=== PATIENT | male | born 1955 | race Caucasian/White ===

== ENCOUNTER 2025-01-27 15:38 | Emergency (ER) | payer MEDICARE, SELFPAY ==
[2025-01-27 15:46] VITALS: BP 149/102
[2025-01-27 16:05] LABS: Urine Character Clear (Clear)
[2025-01-27 16:10] LABS: Hematocrit 42.3 % (39.0-52.0); Hemoglobin 14.4 g/dL (13.0-18.0); Mean Corp Hgb Conc. 34.0 g/dL (33.0-37.0); Mean Corpuscular Volume 84.9 fL (80.0-94.0); Nucleated Red Blood Cells % 0 % (-); Platelet Count 271 10^3/uL (130-400); Red Cell Dist. Width 13.0 % (11.5-14.5)
[2025-01-27 16:16] LABS: ALT (SGPT) 21 U/L (0-50); AST (SGOT) 41 U/L (17-59); Albumin 4.8 g/dl (3.5-5.0); Alkaline Phosphatase 64 U/L (38-126); Blood Urea Nitrogen 25 mg/dl (9-20); Calcium 9.8 mg/dl (8.4-10.2); Carbon Dioxide 27 mmol/L (22-30); Chloride 100 mmol/L (98-107); Glucose 110 mg/dl (70-99); Potassium 4.8 mmol/L (3.5-5.1); Sodium 135 mmol/L (135-145); Total Protein 7.5 g/dl (6.3-8.2); eGFR > 60.00
[2025-01-27 16:44] LABS: Urine Squamous Cell 0-2 /LPF (Few); Urine White Cell 0-2 /HPF (0-5)
[2025-01-27 18:04] VITALS: BP 143/90
[2025-01-27 19:22] VITALS: BP 129/88; BMI 24.8
--- NOTE | 2025-01-27 19:38 | ED.GENMED ---
History of Present Illness
General
Chief Complaint: Male Genito-Urinary Symptoms
Source: patient and spouse
Exam Limitations: none
Time Seen by Provider: 01/27/25 19:09
Nursing documentation reviewed up to this point in time: agreed with
History of Present Illness
History of Present Illness:
69-year-old male history of glaucoma, hip replacement, presents with trouble urinating especially trouble emptying his bladder acute on chronic issue, no fevers no nausea or vomiting no pain with urination just feels like he cannot get his bladder
empty, never seen a physician for this, on no meds, no urologic history no abdominal pain
Past History
Past History
ED Past Medical History: Other (Glaucoma DJD)
ED Past Surgical History: Orthopedic
Social History
Tobacco: Non-smoker
Alcohol: None
Drug: None
Personal:
Living: with family
Employment: Retired
Review of Systems
Review of Systems
All Other Systems: Not applicable
Constitutional: Denies fever or fatigue
Cardiac: Reports no symptoms
ABD/GI: Denies abdominal pain
: Reports difficulty voiding (Trouble emptying his bladder); Denies dysuria, flank pain, incontinence, urgency, bleeding or discharge
Phy Exam
Physical Exam
Physical Exam:
Physical Exam
General: no apparent distress, not acutely ill
Neck: No JVD
Heart: s1/s2 regular rate and rhythm, no murmur. equal radial pulses.
Lungs: no acute respiratory distress. clear bilaterally
Abdomen: Soft nontender no CVA
Neuro: alert and oriented. no focal neurological deficits
Skin: no rash
Psychiatric: well kept. interactive and cooperative
Extremities: no edema.
Course
Orders/Labs/Results
Orders:
Orders
01/27/25 15:54
Complete Blood Count/With Diff Urgent
Comprehensive Metabolic Panel Urgent
Urinalysis Reflex To Culture Urgent
Date Specimen was Collected: 01/27/25
Time Specimen was Collected: 15:45
Urine Microscopic Reflex Cult Urgent
01/27/25 19:29
Tamsulosin [Flomax] 0.4 mg PO NOW STA
Abnormal Lab Results
01/27/25
15:54
WBC 11.8 H 10^3/uL
(4.8-10.8)
Abs Immat Gran (auto) 0.1 H 10^3/uL
(0-0.05)
Absolute Neuts (auto) 8.7 H 10^3/uL
(1.4-6.5)
Absolute Monos (auto) 0.8 H 10^3/uL
(0.1-0.6)
Immature Gran % 0.6 H %
(0-0.5)
Lymphocytes % 16.2 L %
(20.5-51.1)
BUN 25 H mg/dl
(9-20)
Glucose 110 H mg/dl
(70-99)
Ur Occult Blood Reflex 3+ A
(Negative)
Urine RBC 3-6 A /HPF
(0-2)
Urine Bacteria (Reflex) Few A
(Negative)
01/27/25 15:54
01/27/25 15:54
Vital Signs
Initial and Last Documented VS:
Initial Vital Signs
Temp Pulse Resp BP Pulse Ox
98.4 F 85 16 149/102 98
01/27/25 15:46 01/27/25 15:46 01/27/25 15:46 01/27/25 15:46 01/27/25 15:46
Last Documented Vital Signs
Temp Pulse Resp BP Pulse Ox
98.0 F 70 20 129/88 98
01/27/25 18:04 01/27/25 19:22 01/27/25 19:22 01/27/25 19:22 01/27/25 19:39
MDM/Problems Addressed
Differential Diagnosis Includes:
Prostatism UTI BPH urinary obstruction
MDM/Problems Addressed:
Trouble urinating emptying his bladder
*Pulse Oximetry
SaO2: 98
Oxygen Mode of Delivery: Room air
Patient hypoxic: no
*Critical Care Note
Total Time (30-74mins, 75-104mins- exclusive of procedures): Not Applicable
Update Note
Update Note:
7:40 PM update bladder scan 280 cc urine patient is comfortable will start on Flomax urine noted plan follow-up with PCP and/or urologist
ED Attending Note
-
Portions of this chart may have been created with voice recognition software.� Occasional wrong word or��sound alike� substitutions may have occurred due to the inherent limitations of voice recognition software.
Discharge Plan
Departure
Patient Disposition: Home (Routine Discharge)
Date of Disposition: 01/27/25
Time of Disposition: 19:41
Patient with high blood pressure during this ER visit?: No
Condition: Good
Discharge Problem:
Difficulty urinating
Instructions: Urinary retention - Discharge instructions, Urinary retention
Prescriptions:
New
tamsulosin [Flomax] 0.4 mg capsule
0.4 mg PO HS Qty: 30 0RF
Referrals:
Troy Valdez MD [Active, Urology] - Follow up in 5-7 days
Activity Restrictions/Additional Instructions:
Start Flomax 0.4 mg at nighttime
Follow-up with your primary care provider and Dr. Valdez or his associates from Urology
Return to the ER if you are unable to void, fevers vomiting any other concerns
Interventions
Interventions:
*Risk Screen - Suicide Last Done: 01/27/25 15:46
*General Assessment Last Done: 01/27/25 19:22
*Neglect/Abuse Screening Last Done: 01/27/25 15:46
*ED- Fall Risk Assessment Last Done: 01/27/25 19:22
*ED COVID-19 Vaccine History Last Done: 01/27/25 19:22
ED-Male Genitourinary Assessment Last Done: 01/27/25 19:30
Discharge Date and Time
Print Language: BELARUSIAN
[2025-01-27] MEDS: FLOMAX 0.4 MG PO (19:46)
== END 2025-01-27 19:55 | disposition home or self-care (01) ==
LOC: EMR 15:38
PROVIDERS: Emergency Medicine; EMERGENCY PHYSICIAN Emergency Medicine; FAMILY PHYSICIAN Physician Assistant Medical
DX: R39.198 Other difficulties with micturition (principal)
CPT/HCPCS: 99283; 80053; 81003; 81015; 85025

== ENCOUNTER → 2025-03-10 09:09 | Outpatient (REF) | payer MEDICARE, SELFPAY | LOC: HWRAD 09:09 | PROVIDERS: ATTENDING PHYSICIAN Specialist; FAMILY PHYSICIAN Physician Assistant Medical | DX: R31.9 Hematuria, unspecified (principal) | CPT/HCPCS: 76770 ==